=== PATIENT | female | born 1975 | race Caucasian/White ===

== ENCOUNTER 2018-04-12 13:46 | Emergency (ER) | payer SELFPAY ==
[~2018-04-12] VITALS: Ht 154.9 cm; Wt 74.8 kg
[2018-04-12 13:59] VITALS: BP 130/85
--- NOTE | 2018-04-12 14:05 | NUR ---
PATIENT TO LOBBY,NO AVAIL. BED AT THIS TIME. NO DISTRESS
--- NOTE | 2018-04-12 14:10 | NUR ---
42Y/F BIB SELF C/O LEFT LOWER TOOTH PAIN AND SWELLING. PT STATES SHE WAS SEEN BY DENTIST YESTERDAY WITH PRESCRIPTION OF AMOXICILLIN. PER PATIENT NOT GETTING BETTER. HX: [facility]. RX; AMOXICILLIN 500MG STARTED YESTERDAY
--- NOTE | 2018-04-12 14:29 | NUR ---
PT AMBULATED TO BED 02
[2018-04-12] MEDS ORDERED: CLINDAMYCIN 600 MG/4 ML VIAL IM ONE (14:55)
[2018-04-12] MEDS ORDERED: MORPHINE SULFATE 2 MG/ML SYR IM ONE (14:55)
--- NOTE | 2018-04-12 14:56 | NUR ---
Patient being evaluated by physician at bedside.
[2018-04-12] MEDS: LIDOCAINE VISCOUS 2% 20 ML UDC PO ONE ×2 (15:23→15:31)
[2018-04-12 15:56] VITALS: BP 126/81
--- NOTE | 2018-04-12 15:56 | NUR ---
Patient discharged with v/s stable. Written and verbal after care instructions given and explained. Patient alert, oriented and verbalized understanding of instructions. Ambulatory with steady gait. All questions addressed prior to discharge. ID band removed. Patient advised to follow up with PMD. Rx of fioricet and clindamycin given. Patient educated on indication of medication including possible reaction and side effects. Opportunity to ask questions provided and answered.
== END 2018-04-12 15:56 | disposition home or self-care (01) ==
LOC: MED 13:46
DX: K05.30 Chronic periodontitis, unspecified (principal); R03.0 Elevated blood-pressure reading, without diagnosis of hypertension; Z88.6 Allergy status to analgesic agent
CPT/HCPCS: 96372; 99283; J3490; J2270

== ENCOUNTER 2019-01-26 14:29 | Emergency (ER) | payer MEDICAID ==
[~2019-01-26] VITALS: Ht 152.4 cm; Wt 72.6 kg
[2019-01-26 14:40] VITALS: BP 146/85
--- NOTE | 2019-01-26 14:42 | NUR ---
PT TAKEN TO BED 8.
--- NOTE | 2019-01-26 15:30 | NUR ---
DR. GRIFFITH AT BEDSIDE
--- NOTE | 2019-01-26 15:53 | NUR ---
PT RESTING IN BED, DENIES CP AT THIS TIME.
[2019-01-26 16:07] VITALS: BP 140/81
--- NOTE | 2019-01-26 16:08 | NUR ---
Patient discharged with v/s stable. Written and verbal after care instructions given and explained. Patient alert, oriented and verbalized understanding of instructions. Ambulatory with steady gait. All questions addressed prior to discharge. ID band removed. Patient advised to follow up with PMD. Rx of AEROCHAMBER, PREDNISONE, & TESSALON PERLES given. Patient educated on indication of medication including possible reaction and side effects. Opportunity to ask questions provided and answered.
== END 2019-01-26 16:10 | disposition home or self-care (01) ==
LOC: MED 14:29
DX: J40 Bronchitis, not specified as acute or chronic (principal); R03.0 Elevated blood-pressure reading, without diagnosis of hypertension; Z88.6 Allergy status to analgesic agent
CPT/HCPCS: 93005; 99283